=== PATIENT | female | born 1945 | race Caucasian/White ===

== ENCOUNTER → 2017-07-03 | Outpatient (CLI) | payer MEDICARE, OTHER ==
[~2017-07-03] MED LIST: AMLO-104 PO; AMLO-99 PO; ASCO100T12 PO; ASCO100T15 PO; ASPI-1121 PO; ASPI-1471 PO; ASPI81TA94 PO; AZIT-18 PO; BIOT250012 PO; CELE-1 PO; CYAN500T7 PO; DESM0.1T12 PO; DIPH-1 PO; ESTR0.9T14 PO; ESTR1PAT3 TD; FENT1PAT40 TD; FLU20 PO; FLUO-177; FLUO-202 PO; GLUC500C29 PO; HYDR-2946 PO; HYDR12.556 PO; LOSA100T67 PO; MED25 PO; METF-410 PO; MIRA50TA PO; MULT-820 PO; MULT-865 PO; ONDA4TAB97 PO; ONDA8TAB98 PO; OXYC-869 PO; PER PO; POTA99TA10 PO; PREMARIN PO; PROM12.546 PO; SAXA5TAB4; SCOT TD; SITA100T PO; TELM80TA5 PO; VITA-200 PO; VITA100C12 PO
--- NOTE | 2017-07-03 14:25 | RADIOLOGY IMAGING REPORT ---
FACILITY: [facility] PATIENT NAME: THEO YOUNGER : [id number] MR: [id number] V: [id number] EXAM DATE: [id number] ORDERING PHYSICIAN: CHRISTINA COTA TECHNOLOGIST: Yahaira Cox PROCEDURE:BILATERAL DIAGNOSTIC DIGITAL MAMMOGRAM WITH CAD ASSISTED INTERPRETATION & 3D TOMOSYNTHESIS COMPARISON:12/16/2016, 07/03/2016, 06/24/2016, 07/04/2014, 03/01/2014 INDICATIONS:abnormal mammo/6 month follow up of a small ovoid nodule in the left breast at 11 o'clock. VIEWS OBTAINED: Bilateral 2D full field CC & MLO & corresponding 3D tomography TISSUE DENSITY: Scattered fibroglandular densities. FINDINGS: Left breast small focal asymmetry at 9 o'clock is unchanged since 2013. Right breast upper outer quadrant grouped microcalcifications are stable since 2014. There is no mammographic finding suspicious for malignancy in either breast. DIAGNOSTIC CATEGORY 2--BENIGN FINDING. RECOMMENDATIONS: ANNUAL SCREENING BILATERAL MAMMOGRAM AND CLINICAL EVALUATION. IMPRESSION: BIRADS 2: Benign finding. I discussed the results & recommendation with the patient following this study. Dictated by: Camila Inman M.D. on 07/03/2017 at 12:23 Transcribed by: LITO on 07/03/2017 at 13:38 Approved by: Camila Inman M.D. on 07/03/2017 at 14:24 [facility]
--- NOTE | 2017-07-03 14:26 | RADIOLOGY IMAGING REPORT ---
FACILITY: [facility] [place] PATIENT NAME: THEO YOUNGER : [id number] MR: [id number] V: [id number] EXAM DATE: ORDERING PHYSICIAN: CHRISTINA COTA TECHNOLOGIST: Boaz Bustamante PROCEDURE:US LEFT BREAST COMPARISON:Left breast Ultrasound 07/03/2016, 12/16/2016 INDICATIONS:Follow up of a Left breast hypoechoic finding at 11 o'clock FINDINGS: Area scanned: Left breast upper inner quadrant from 10-11 o'clock. The hypoechoic finding seen on the 2 prior breast Ultrasound studies is no longer visualized. There is normal appearing fibroglandular tissue in the 10-11 o'clock area. DIAGNOSTIC CATEGORY 2--BENIGN FINDING. RECOMMENDATIONS: ANNUAL BILATERAL SCREENING MAMMOGRAM. I discussed the results & recommendations with the patient following the study. IMPRESSION: BIRADS 2: Benign finding Dictated by: Camila Inman M.D. on 07/03/2017 at 12:26 Transcribed by: LITO on 07/03/2017 at 13:44 Approved by: Camila Inman M.D. on 07/03/2017 at 14:25 [facility]
== END ==
LOC: MAMO 02:38
PROVIDERS: ATTEND Internal Medicine
DX: R92.8 Other abnormal and inconclusive findings on diagnostic imaging of breast (principal); R92.1 Mammographic calcification found on diagnostic imaging of breast
CPT/HCPCS: 77062; 77066

== ENCOUNTER 2017-09-21 14:42 | Emergency (ER) | payer MEDICARE, OTHER ==
[~2017-09-21 14:42] MED LIST changes: +BENZ200C15 PO; +DOXY-179 PO; -METF-410 PO; +METF-411 PO; +PRED20TA6 PO
[2017-09-21 14:50] VITALS: BP 139/93
--- NOTE | 2017-09-21 14:54 | ER Report ---
History and Physical Time Seen By MD: 14:54 HPI/ROS CHIEF COMPLAINT: Weakness, dizziness HISTORY OF PRESENT ILLNESS: 71-year-old female patient presents to emergency room with complaint of weakness and dizziness. Patient states she's been feeling dizzy for the last 3 days. Patient states she's been sick for approximately 4 weeks now. She states that she did see a physician printing bindery assistant last week who started her on antibiotics and steroids. She states that she has not finished the antibiotics, if she has been steroids and states she is not feeling any better. She states she's had some nausea and vomiting, however so had anything recently. She also states she's not had any fevers, however temperatures higher than it normally is. Patient states that she's been feeling incredibly dizzy whenever she is sitting or standing. She states she has a history of hypokalemia. REVIEW OF SYSTEMS: Respiratory: No cough, no dyspnea. Cardiovascular: No chest pain, no palpitations. Gastrointestinal: No vomiting, no abdominal pain. Musculoskeletal: No back pain. Allergies: Coded Allergies: acetaminophen (Verified Allergy, Unknown, 09/21/17) cephalexin (Verified Allergy, Unknown, 09/21/17) codeine (Verified Allergy, Unknown, 09/21/17) hydrocodone (Verified Allergy, Unknown, 09/21/17) pregabalin (Verified Allergy, Unknown, 09/21/17) propoxyphene (Verified Allergy, Unknown, 09/21/17) Uncoded Allergies: PO NARCOTICS (Allergy, Intermediate, PO NARCOTICS MAKE HER THROW UP, ) Home Meds Active Scripts Potassium Chloride (KLOR-CON M20) 20 Meq Tab.er.prt, 20 MEQ PO QDAY, #30 TAB.SR Prov:POLLO POSADA [facility] 09/21/17 Fluoxetine Hcl (PROZAC) 20 Mg Capsule, 20 MG PO QDAY, #90 CAPSULE 1 Refill Prov:CHRISTINA COTA MD 08/18/17 Losartan Potassium (LOSARTAN POTASSIUM) 100 Mg Tablet, 100 MG PO QDAY, #90 TAB 1 Refill Prov:CHRISTINA COTA MD 08/18/17 Hydrochlorothiazide (HYDROCHLOROTHIAZIDE) 12.5 Mg Capsule, 1 TAB PO QDAY, #90 CAPSULE 1 Refill Prov:CHRISTINA COTA MD 08/18/17 Metformin Hcl (METFORMIN HCL) 500 Mg Tablet, 1 TAB PO BID, #180 TAB 1 Refill Prov:CHRISTINA COTA MD 08/18/17 Scopolamine (TRANSDERM-SCOP) 1.5 Mg Patch, 1.5 MG TD Q3D for 7 Days, #4 PATCH Prov:CHRISTINA COTA MD 02/24/17 Reported Medications Biotin (Biotin) 10,000 Mcg Capsule 09/21/17 Cyanocobalamin (Vitamin B-12) (VITAMIN B-12) 1,000 Mcg Tab.subl, 1000 MCG SL 09/21/17 Vitamin E Acetate (VITAMIN E) 400 Unit Capsule, 400 UNIT PO, CAPSULE 09/21/17 Ascorbic Acid (VITAMIN C) 500 Mg Tablet, 1000 MG PO, TAB 09/21/17 Atorvastatin Calcium (ATORVASTATIN CALCIUM) 10 Mg Tablet, 1 TAB PO QDAY, TAB 09/21/17 Fluoxetine Hcl (FLUOXETINE HCL) 20 Mg Capsule, 20 MG PO QDAY, CAPSULE 09/21/17 Amlodipine Besylate (AMLODIPINE BESYLATE) 10 Mg Tablet, 1 TAB PO QDAY, TAB 09/21/17 Mirabegron (MYRBETRIQ) 50 Mg Tab.er.24h, 50 MG PO for 90 Days, #90 TAB 3 Refills 06/22/17 Multivitamin (DAILY MULTIPLE VITAMIN) 1 Each Tablet, 1 TAB PO DAILY 11/26/16 Aspirin (ASPIRIN) 81 Mg Tab.chew, 81 MG PO QDAY, TAB.CHEW 11/26/16 Estradiol (ESTRADIOL 0.05 MG) 1 Each Patch.tdwk, 1 EACH TD Q7D, PATCH.WK 11/11/16 Discontinued Reported Medications Amlodipine Besylate (NORVASC) 10 Mg Tablet, 1 TAB PO QDAY, TAB 11/26/16 Discontinued Scripts Doxycycline Hyclate (DOXYCYCLINE HYCLATE) 100 Mg Tablet, 1 TAB PO BID for 7 Days , #14 TAB 0 Refills Prov:JU MENA DNP, FNP-BC 09/14/17 Prednisone (PREDNISONE) 20 Mg Tablet, 1 TAB PO BID for 5 Days, #10 TAB 0 Refills Prov:JU MENA DNP, FNP-BC 09/14/17 Benzonatate (BENZONATATE) 200 Mg Capsule, 1 CAP PO TID Y for COUGH, #15 CAP 0 Refills Prov:JU MENA DNP, FNP-BC 09/14/17 Past Medical/Surgical History Patient has a past medical history of hypertension, pneumonia, frequent urination, elbow fracture, back pain, ear infections, prediabetic, depression. Patient has surgical history of tonsillectomy, back surgery, bilateral knee replacement, elbow surgery, hysterectomy, bladder surgery. Patient has a family medical history of diabetes. Reviewed Nurses Notes: Yes Hx Smoking: No Smoking Status: Never Smoker Exposure to Second Hand Smoke?: No Hx Substance Use Disorder: No Hx Alcohol Use: No Constitutional Vital Sign - Last 24 Hours 09/21/17 09/21/17 14:50 15:35 Temp 98.8 Pulse 64 Resp 18 B/P (MAP) 139/93 Pulse Ox 91 O2 Delivery Room Air O2 Flow Rate 1.0 Intake and Output 09/21/17 09/21/17 09/22/17 14:59 22:59 06:59 Intake Total 500 ml Balance 500 ml Physical Exam General Appearance: The patient is alert, has no immediate need for airway protection and no current signs of toxicity. Respiratory: Chest is non tender, lungs are clear to auscultation. Cardiac: regular rate and rhythm Gastrointestinal: Abdomen is soft and slightly tender in the right lower quadrant, no masses, bowel sounds normal. Musculoskeletal: Neck: Neck is supple and non tender. Extremities have full range of motion and are non tender. Skin: No rashes or lesions. DIFFERENTIAL DIAGNOSIS: After history and physical exam differential diagnosis was considered for dizziness including but not limited to peripheral and central causes of vertigo, orthostatic causes including dehydration, and blood loss. Medical Decision Making Data Points Result Diagram: 09/21/17 1529 09/21/17 1529 Laboratory Hematology Test 09/21/17 15:29 09/21/17 16:09 Red Blood Count 5.46 M/uL (4.17-5.56) Mean Corpuscular Volume 85.1 fL (80.0-96.0) Mean Corpuscular Hemoglobin 29.4 pg (26.0-33.0) Mean Corpuscular Hemoglobin Concent 34.6 g/dL (32.0-36.0) Red Cell Distribution Width 14.4 % (11.5-14.5) Mean Platelet Volume 8.3 fL (7.2-11.1) Neutrophils (%) (Auto) 64.2 % (39.4-72.5) Lymphocytes (%) (Auto) 21.2 % (17.6-49.6) Monocytes (%) (Auto) 11.5 % (4.1-12.4) Eosinophils (%) (Auto) 2.9 % (0.4-6.7) Basophils (%) (Auto) 0.2 % (0.3-1.4) Nucleated RBC Relative Count (auto) 0.0 /100WBC Neutrophils # (Auto) 3.1 K/uL (2.0-7.4) Lymphocytes # (Auto) 1.0 K/uL (1.3-3.6) Monocytes # (Auto) 0.6 K/uL (0.3-1.0) Eosinophils # (Auto) 0.1 K/uL (0.0-0.5) Basophils # (Auto) 0.0 K/uL (0.0-0.1) Nucleated RBC Absolute Count (auto) 0.00 K/uL Sodium Level 136 mmol/L (137-145) Potassium Level 2.7 mmol/L (3.5-5.0) Chloride Level 98 mmol/L (98-107) Carbon Dioxide Level 24 mmol/L (22-31) Blood Urea Nitrogen 34 mg/dl (7-18) Creatinine 1.10 mg/dl (0.52-1.04) Glomerular Filtration Rate Calc 49.0 Random Glucose 115 mg/dl (75-110) Calcium Level 9.4 mg/dl (8.4-10.2) Total Bilirubin 0.5 mg/dl (0.2-1.3) Aspartate Amino Transf (AST/SGOT) 27 U/L (0-35) Alanine Aminotransferase (ALT/SGPT) 34 U/L (0-56) Alkaline Phosphatase 88 U/L (0-126) Troponin I < 0.012 ng/ml Total Protein 6.2 gm/dl (6.3-8.2) Albumin 3.5 g/dl (3.5-5.0) Urine Color Straw Urine Clarity Clear Urine pH 6.0 pH (4.8-9.5) Urine Specific [place] 1.010 Urine Protein Negative mg/dL (NEGATIVE) Urine Glucose (UA) Negative mg/dL (NEGATIVE) Urine Ketones Negative mg/dL (NEGATIVE) Urine Blood Negative (NEGATIVE) Urine Nitrite Negative (NEGATIVE) Urine Bilirubin Negative (NEGATIVE) Urine Urobilinogen Negative mg/dL (0.2-1.9) Urine Leukocyte Esterase Negative (NEGATIVE) Urine RBC None /HPF (0-2/HPF) Urine WBC None /HPF (0-5/HPF) Urine Squamous Epithelial Cells Few /LPF (</=FEW) Urine Bacteria Negative /HPF (NONE-FEW) Urine Mucus None /HPF (NONE-FEW) Chemistry Test 09/21/17 15:29 09/21/17 16:09 White Blood Count 4.8 k/uL (4.5-11.0) Red Blood Count 5.46 M/uL (4.17-5.56) Hemoglobin 16.1 g/dL (12.0-16.0) Hematocrit 46.5 % (34.0-47.0) Mean Corpuscular Volume 85.1 fL (80.0-96.0) Mean Corpuscular Hemoglobin 29.4 pg (26.0-33.0) Mean Corpuscular Hemoglobin Concent 34.6 g/dL (32.0-36.0) Red Cell Distribution Width 14.4 % (11.5-14.5) Platelet Count 210 K/uL (150-450) Mean Platelet Volume 8.3 fL (7.2-11.1) Neutrophils (%) (Auto) 64.2 % (39.4-72.5) Lymphocytes (%) (Auto) 21.2 % (17.6-49.6) Monocytes (%) (Auto) 11.5 % (4.1-12.4) Eosinophils (%) (Auto) 2.9 % (0.4-6.7) Basophils (%) (Auto) 0.2 % (0.3-1.4) Nucleated RBC Relative Count (auto) 0.0 /100WBC Neutrophils # (Auto) 3.1 K/uL (2.0-7.4) Lymphocytes # (Auto) 1.0 K/uL (1.3-3.6) Monocytes # (Auto) 0.6 K/uL (0.3-1.0) Eosinophils # (Auto) 0.1 K/uL (0.0-0.5) Basophils # (Auto) 0.0 K/uL (0.0-0.1) Nucleated RBC Absolute Count (auto) 0.00 K/uL Glomerular Filtration Rate Calc 49.0 Calcium Level 9.4 mg/dl (8.4-10.2) Total Bilirubin 0.5 mg/dl (0.2-1.3) Aspartate Amino Transf (AST/SGOT) 27 U/L (0-35) Alanine Aminotransferase (ALT/SGPT) 34 U/L (0-56) Alkaline Phosphatase 88 U/L (0-126) Troponin I < 0.012 ng/ml Total Protein 6.2 gm/dl (6.3-8.2) Albumin 3.5 g/dl (3.5-5.0) Urine Color Straw Urine Clarity Clear Urine pH 6.0 pH (4.8-9.5) Urine Specific [place] 1.010 Urine Protein Negative mg/dL (NEGATIVE) Urine Glucose (UA) Negative mg/dL (NEGATIVE) Urine Ketones Negative mg/dL (NEGATIVE) Urine Blood Negative (NEGATIVE) Urine Nitrite Negative (NEGATIVE) Urine Bilirubin Negative (NEGATIVE) Urine Urobilinogen Negative mg/dL (0.2-1.9) Urine Leukocyte Esterase Negative (NEGATIVE) Urine RBC None /HPF (0-2/HPF) Urine WBC None /HPF (0-5/HPF) Urine Squamous Epithelial Cells Few /LPF (</=FEW) Urine Bacteria Negative /HPF (NONE-FEW) Urine Mucus None /HPF (NONE-FEW) Urinalysis Test 09/21/17 16:09 Urine Color Straw Urine Clarity Clear Urine pH 6.0 pH (4.8-9.5) Urine Specific [place] 1.010 Urine Protein Negative mg/dL (NEGATIVE) Urine Glucose (UA) Negative mg/dL (NEGATIVE) Urine Ketones Negative mg/dL (NEGATIVE) Urine Blood Negative (NEGATIVE) Urine Nitrite Negative (NEGATIVE) Urine Bilirubin Negative (NEGATIVE) Urine Urobilinogen Negative mg/dL (0.2-1.9) Urine Leukocyte Esterase Negative (NEGATIVE) Urine RBC None /HPF (0-2/HPF) Urine WBC None /HPF (0-5/HPF) Urine Squamous Epithelial Cells Few /LPF (</=FEW) Urine Bacteria Negative /HPF (NONE-FEW) Urine Mucus None /HPF (NONE-FEW) EKG/Imaging EKG Interpretation 12 lead EKG: Rhythm: normal sinus rhythm with a ventricular rate of 61 bpm [place]: normal QRS: Left anterior fascicular block ST segments: normal Imaging Exam type: CHEST PA AND LAT History: Dizziness and cough Comparison: November 11, 2016. And August 17, 2014 Findings: The lungs are free of acute effusions, infiltrates or edema. This mild chronic peribronchial thickening bilaterally. The cardiac swelling is normal in size. Is moderate ectasia thoracic aorta. IMPRESSION: 1. No acute cardiac pulmonary process is seen Mild chronic peribronchial thickening bilaterally Report Dictated By: Stacey Delacruz MD at 09/21/2017 4:11 PM Report E-Signed By: Stacey Delacruz MD at 09/21/2017 4:14 PM EXAMINATION: CT head without IV contrast HISTORY: Dizziness. TECHNIQUE: Axial CT images of the head were obtained from the vertex to the skull base without IV contrast, with coronal and sagittal 2D reconstructed images. One of the following dose optimization techniques was utilized in the performance of this exam: Automated exposure control; adjustment of the mA and/ or kV according to the patient's size; or use of an iterative reconstruction technique. Specific details can be referenced in the facility's radiology CT exam operational policy. COMPARISON: 03/03/2013. FINDINGS: Intracranial contents are unremarkable. No CT evidence of intracranial hemorrhage, mass lesion, or acute infarct. No midline shift or extra-axial fluid collections. Abbott-white differentiation is maintained. The calvarium is intact. The partially visualized paranasal sinuses and mastoid air cells are unopacified. IMPRESSION: Unremarkable noncontrast head CT. Report Dictated By: Henrique Tabor MD at 09/21/2017 4:09 PM Report E-Signed By: Henrique Tabor MD at 09/21/2017 4:14 PM ED Course/Re-evaluation ED Course Patient was admitted to exam room, history and physical were obtained. Differential diagnoses were considered. On examination patient was alert and oriented 4, lungs are clear, heart was regular, patient had no abdominal tenderness. An IV started, a CBC, CMP, EKG, chest x-ray, CT scan of the head, troponin were done. Patient did have an elevated BUN of 34, a creatinine of 1.1 , a potassium of 2.7. I believe the patient is feeling dizzy and off because of her low potassium and her dehydration. Patient was given a half liter of normal saline prior to getting her head CT, which was negative, and then after that received a 20 mEq K rider and a liter of normal saline with that. On reevaluation patient states she's feeling significantly better. Patient's EKG showed a normal sinus rhythm with a left anterior fascicular block, her troponin was negative, chest x-ray showed no acute cardiopulmonary processes. Patient states she feels ready to go home. I discussed follow-up with her primary care provider. She does have an appointment with Dr. Cota tomorrow. Patient was given a prescription for potassium 20 mEq she is to take daily. She is to follow-up with Jassi Agustin and order repeat labs for later this week. Patient verbalized understanding and agreement with plan. Decision to Disposition Date: September 21, 2017 Decision to Disposition Time: 18:30 Depart Departure Latest Vital Signs Vital Signs Date Time Temp Pulse Resp B/P (MAP) Pulse Ox O2 Delivery O2 Flow Rate FiO2 09/21/17 15:35 1.0 09/21/17 14:50 98.8 64 18 139/93 91 Room Air Impression: Primary Impression: Hypokalemia Additional Impression: Dehydration Condition: Improved Disposition: HOME OR SELF-CARE Referrals: CHRISTINA COTA MD (PCP) New Scripts Potassium Chloride (KLOR-CON M20) 20 Meq Tab.er.prt 20 MEQ PO QDAY, #30 TAB.SR Prov: POLLO POSADA 09/21/17 Patient Instructions: Hypokalemia (ED) Additional Instructions: Increase fluid intake. Get plenty of rest. Follow up with Dr. Cota tomorrow as directed. Take your medication as prescribed. Return to the ER if condition worsens. Discuss getting repeat labs done with Dr. Cota tomorrow. Problem Qualifiers POLLO POSADA September 21, 2017 14:54
[2017-09-21] MEDS ORDERED: NS(*) 0.9% 500 ML BAG 500 ML IV ONE (15:03)
[2017-09-21] MEDS ORDERED: ONDANSETRON 4 MG/2 ML VIAL IVP ONE (15:05)
[2017-09-21] MEDS ORDERED: AMLO-99 PO (15:46)
[2017-09-21] MEDS ORDERED: FLUO-177 PO (15:46)
[2017-09-21] MEDS ORDERED: ASCO-182 PO (15:46)
[2017-09-21] MEDS ORDERED: VITA-200 PO (15:46)
[2017-09-21] MEDS ORDERED: BIOT10005 (15:46)
[2017-09-21] MEDS ORDERED: CYAN100071 SL (15:46)
[2017-09-21] MEDS ORDERED: ATOR10TA65 PO (15:46)
[2017-09-21] MEDS ORDERED: KCL (*) 20 MEQ/100 ML PREMIX 100 ML IV ONE (16:00)
[2017-09-21 16:01] LABS: PLATELET COUNT, AUTOMATED 210 K/uL (150-450)
--- NOTE | 2017-09-21 16:18 | RADIOLOGY IMAGING REPORT ---
FACILITY: [facility] - [place] PATIENT NAME: Henna Garcia : 1945 MR: [id number] V: [id number] EXAM DATE: ORDERING PHYSICIAN: POLLO POSADA TECHNOLOGIST: Location: [facility] Patient: Henna Garcia : 1945 Visit/Account:[id number] Date of Sevice: 09/21/2017 EXAMINATION: CT head without IV contrast HISTORY: Dizziness. TECHNIQUE: Axial CT images of the head were obtained from the vertex to the skull base without IV c ontrast, with coronal and sagittal 2D reconstructed images. One of the following dose optimization techniques was utilized in the performance of this exam: Autom ated exposure control; adjustment of the mA and/or kV according to the patient's size; or use of an i terative reconstruction technique. Specific details can be referenced in the facility's radiology C T exam operational policy. COMPARISON: 03/03/2013. FINDINGS: Intracranial contents are unremarkable. No CT evidence of intracranial hemorrhage, mass lesion, or ac irais infarct. No midline shift or extra-axial fluid collections. Abbott-white differentiation is maintai valdemar. The calvarium is intact. The partially visualized paranasal sinuses and mastoid air cells are unopaci fied. IMPRESSION: Unremarkable noncontrast head CT. Report Dictated By: Henrique Tabor MD at 09/21/2017 4:09 PM Report E-Signed By: Henrique Tabor MD at 09/21/2017 4:14 PM WSN:[id number]
--- NOTE | 2017-09-21 16:18 | RADIOLOGY IMAGING REPORT ---
FACILITY: [facility] PATIENT NAME: Henna Garcia : 1945 MR: [id number] V: [id number] EXAM DATE: ORDERING PHYSICIAN: POLLO POSADA TECHNOLOGIST: Location: [facility] [place] Patient: Henna Garcia : 1945 Visit/Account:[id number] Date of Sevice: 09/21/2017 Exam type: CHEST PA AND LAT History: Dizziness and cough Comparison: November 11, 2016. And August 17, 2014 Findings: The lungs are free of acute effusions, infiltrates or edema. This mild chronic peribronchial thicken ing bilaterally. The cardiac swelling is normal in size. Is moderate ectasia thoracic aorta. IMPRESSION: 1. No acute cardiac pulmonary process is seen Mild chronic peribronchial thickening bilaterally Report Dictated By: Stacey Delacruz MD at 09/21/2017 4:11 PM Report E-Signed By: Stacey Delacruz MD at 09/21/2017 4:14 PM WSN:[id number]
[2017-09-21] MEDS ORDERED: NS(*) 0.9% 1000 ML BAG 1,000 ML IV ONE (16:20)
--- NOTE | 2017-09-21 16:21 | EKG ---
FACILITY: [facility] - [place] PATIENT NAME: THEO YOUNGER : [id number] MR: [id number] V: [id number] EXAM DATE: ORDERING PHYSICIAN: POLLO POSADA TECHNOLOGIST: Philipp Harrington Reason : Blood Pressure : / mmHG Vent. Rate : 061 BPM Atrial Rate : 061 BPM P-R Int : 160 ms QRS Dur : 094 ms QT Int : 426 ms P-R-T Axes : 050 -45 021 degrees QTc Int : 428 ms Sinus rhythm Probable left atrial enlargement Left axis Nonspecific interventricular conduction delay Nonspecific ST findings Abnormal ECG Confirmed by MAIKEL SEVILLA ([id number]) on 09/22/2017 5:49:06 AM Referred By: Confirmed By:MAIKEL SEVILLA
[2017-09-21] MEDS ORDERED: POTA20TA85 PO (18:28)
[2017-09-21] MEDS ORDERED: POTASSIUM CHL 20 MEQ TABCR PO ONE (18:30)
== END 2017-09-21 18:42 | disposition home or self-care (01) ==
LOC: ER 14:51
DX: E87.6 Hypokalemia (principal); E86.0 Dehydration
CPT/HCPCS: 70450; 71046; 81001; 84484; 85025; 93005; 96361; 96365; 96366; 96375; 99284; A9270; J2405; J3480; J7030; J7040; 82040; 82247; 82310; 82374; 82435; 82565; 82947; 84075; 84132; 84155; 84295; 84450; 84460; 84520

== ENCOUNTER → 2017-09-25 | Outpatient (CLI) | payer MEDICARE, OTHER ==
[~2017-09-25] MED LIST changes: +ASCO-182 PO; +ATOR10TA65 PO; +BIOT10005; +CYAN100071 SL; +FLUO-177 PO; +POTA20TA85 PO
== END ==
LOC: LAB 10:13
PROVIDERS: ATTEND Nurse Practitioner Primary Care
DX: E87.6 Hypokalemia (principal)
CPT/HCPCS: 36415; 82040; 82247; 82310; 82374; 82435; 82565; 82947; 84075; 84132; 84155; 84295; 84450; 84460; 84520

== ENCOUNTER → 2017-10-08 | Outpatient (CLI) | payer MEDICARE, OTHER ==
[~2017-10-08] MED LIST changes: +CHOL200074 PO; +ESTR0.5T16 PO
== END ==
LOC: LAB 11:50
PROVIDERS: ATTEND Emergency Medicine
DX: E87.6 Hypokalemia (principal); E11.9 Type 2 diabetes mellitus without complications
CPT/HCPCS: 36415; 82310; 82374; 82435; 82565; 82947; 83036; 83735; 84132; 84295; 84520

== ENCOUNTER → 2017-10-19 | Outpatient (CLI) | payer MEDICARE, OTHER ==
--- NOTE | 2017-10-19 09:49 | RADIOLOGY IMAGING REPORT ---
FACILITY: [facility] PATIENT NAME: Henna Garcia : 1945 MR: [id number] V: [id number] EXAM DATE: ORDERING PHYSICIAN: JUAN DRISCOLL TECHNOLOGIST: Location: [facility] [place] Patient: Henna Garcia : 1945 Visit/Account:[id number] Date of Sevice: 10/19/2017 DEXA Scan Clinical history: Postmenopausal estrogen deficiency. Comparison: 06/11/2004. HIP: Bone mineral density (BMD) measured in the Left total hip region correlates with a Z-score 1.5 and a T-score of 0.1 which is Normal as defined by the World Health Organization. The corresponding risk of fracture in the hip is Not increased compared with a young adult reference population. Bone mineral density (BMD) measured in the Femoral Neck region measures 0.903 g/cm2. FOREARM: The bone mineral density (BMD) measured in the ULTRADISTAL Left forearm, where trabecular bone predom inates, correlates with a Z-score 2.4 and a T-score of 0.4 which is normal as defined by the World He alth Organization. The corresponding risk of fracture in the distal forearm is not increased compare d with a young adult reference population. The bone mineral density (BMD) in the MIDSHAFT of the forearm, where cortical bone predominates, kirit elates with a Z-score 1.7 and a T-score of -0.3 which is normal as defined by the World Health Organi zation. The corresponding risk of fracture in the midshaft of the forearm is not increased compared w ith a young adult reference population. IMPRESSION: 1. Left Hip: Normal. 2. Femoral Neck: Bone Mineral Density is 0.903 g/cm2 3. Left Forearm: Normal. The next DEXA scan of this patient should include the following sites: Left hip and the left forearm. FRAX? WHO Fracture Risk Assessment Tool link: <http://www.shef.ac.uk/FRAX/tool.jsp?locationValue=9> PLEASE NOTE: 1) The World Health Organization defines low BMD as follows: T-score Normal > -1 Osteopenia < -1 and > -2.5 Osteoporosis < -2.5 without fractures Established osteoporosis < -2.5 with fractures 2) In general, you may wish to consider: Diagnosis Treatment Follow-up DEXA Normal BMD Prevention 2-3 years Osteopenia Prevention/therapy 1-2 years Osteoporosis Therapy Yearly 3) Fracture risk estimated from the T-score is more accurate for vertebral fractures (often spontane ous) than for hip fractures. Report Dictated By: Stacey Delacruz MD at 10/19/2017 9:28 AM Report E-Signed By: Stacey Delacruz MD at 10/19/2017 9:45 AM LORAINEN:[email or web address]
== END ==
LOC: RAD 02:28
PROVIDERS: ATTEND Emergency Medicine
DX: Z13.820 Encounter for screening for osteoporosis (principal); Z78.0 Asymptomatic menopausal state
CPT/HCPCS: 77080

== ENCOUNTER → 2017-11-02 | Outpatient (CLI) | payer MEDICARE, OTHER | LOC: LAB 08:19 | PROVIDERS: ATTEND Emergency Medicine | DX: I10 Essential (primary) hypertension (principal) | CPT/HCPCS: 36415; 82465; 83718; 84478 ==

== ENCOUNTER → 2018-04-29 | Outpatient (CLI) | payer MEDICARE, OTHER ==
[~2018-04-29] MED LIST changes: +AMLO-113 PO; -AMLO-99 PO; +ATOR20TA65 PO; -LOSA100T67 PO; +LOSA100T75 PO; -METF-411 PO; +METF-450 PO
== END ==
LOC: LAB 09:49
PROVIDERS: ATTEND Emergency Medicine
DX: R20.8 Other disturbances of skin sensation (principal); R73.03 Prediabetes
CPT/HCPCS: 36415; 82607; 83036

== ENCOUNTER → 2018-05-19 | Outpatient (CLI) | payer MEDICARE, OTHER ==
--- NOTE | 2018-05-20 17:09 | EKG ---
FACILITY: [facility] - [place] PATIENT NAME: THEO YOUNGER : [id number] MR: [id number] V: [id number] EXAM DATE: ORDERING PHYSICIAN: ANNIE LARA TECHNOLOGIST: LV Test Reason : SCOPE CONSULT Blood Pressure : / mmHG Vent. Rate : 055 BPM Atrial Rate : 055 BPM P-R Int : 172 ms QRS Dur : 090 ms QT Int : 480 ms P-R-T Axes : 003 -24 -03 degrees QTc Int : 459 ms Sinus bradycardia Otherwise normal ECG When compared with ECG of 19-MAY-2018 09:12, No significant change was found Referred By: MD LARA Confirmed By:
== END ==
LOC: RESP 08:58
PROVIDERS: ATTEND Surgery
DX: Z02.9 Encounter for administrative examinations, unspecified (principal)

== ENCOUNTER 2018-06-29 00:20 | Day surgery (SDC) | payer MEDICARE, OTHER ==
[~2018-06-29] VITALS: Ht 170.2 cm; Wt 68.5 kg
[~2018-06-29 00:20] MED LIST changes: -AMLO-113 PO; +AMLO-127 PO; -DESM0.1T12 PO; +LIDOCAINE/SOD BICARB 8.4% SYR ID ONE; +NORMOSOL R SOLN(*) 1000 ML BAG 1,000 ML IV PRN; +[UNRECOGNIZED DRUG - CODE] PO
[2018-06-29] MEDS ORDERED: LIDOCAINE MPF 1% 5 ML VIAL ONE (07:33)
[2018-06-29] MEDS ORDERED: PROPOFOL EMUL(*) 10MG/ML 20 ML 40 ML ONE (07:33)
[2018-06-29 08:17] VITALS: BP 133/81
[2018-06-29 09:43] VITALS: BP 91/61
[2018-06-29] MEDS ORDERED: LIDOCAINE/SOD BICARB 8.4% SYR ID ONE (09:45)
[2018-06-29] MEDS ORDERED: NORMOSOL R SOLN(*) 1000 ML BAG 1,000 ML IV PRN (09:45)
[2018-06-29 09:52] VITALS: BP 104/64
--- NOTE | 2018-06-29 09:54 | Short(Outpt) Discharge Summary ---
Discharge Summary Reason for Hosp/Final Diag: (1) Encounter for screening colonoscopy Hospital Course & Plan: pt presented for screening colonoscopy. she tolerated the procedure well and there were no complications. she will be discharged home when criteria met. Departure Discharge to: Home Discharge Instructions Home Meds Active Scripts Hydrochlorothiazide (HYDROCHLOROTHIAZIDE) 12.5 Mg Capsule, 1 TAB PO QDAY, #90 CAPSULE 3 Refills Prov:JUAN DRISCOLL MD 03/02/18 Amlodipine Besylate (AMLODIPINE BESYLATE) 10 Mg Tablet, 1 TAB PO QDAY, #90 TAB 3 Refills Prov:JUAN DRISCOLL MD 02/12/18 Potassium Chloride (KLOR-CON M20) 20 Meq Tab.er.prt, 20 MEQ PO QDAY, #90 TAB.SR 3 Refills Prov:JUAN DRISCOLL MD 02/12/18 Metformin Hcl (METFORMIN HCL) 500 Mg Tablet, 1 TAB PO BID, #180 TAB 3 Refills Prov:JUAN DRISCOLL MD 02/12/18 Fluoxetine Hcl (PROZAC) 20 Mg Capsule, 20 MG PO QDAY, #90 CAPSULE 3 Refills Prov:JUAN DRISCOLL MD 02/12/18 Losartan Potassium (LOSARTAN POTASSIUM) 100 Mg Tablet, 100 MG PO QDAY, #90 TAB 3 Refills Prov:JUAN DRISCOLL MD 02/12/18 Atorvastatin Calcium (ATORVASTATIN CALCIUM) 20 Mg Tablet, 1 TAB PO QDAY, #90 TAB 3 Refills Prov:JUAN DRISCOLL MD 01/27/18 Reported Medications Cholecalciferol (Vitamin D3) (VITAMIN D-3) Unknown Strength Capsule, PO, CAPSULE 10/08/17 Estradiol (ESTRADIOL) 0.5 Mg Tablet, 0.5 MG PO DAILY 10/08/17 Mirabegron (MYRBETRIQ) 50 Mg Tab.er.24h, 50 MG PO for 90 Days, #90 TAB 3 Refills 06/22/17 Aspirin (ASPIRIN) 81 Mg Tab.chew, 81 MG PO QDAY, TAB.CHEW 11/26/16 Diet: Regular Activity: As Tolerated Special Instructions: repeat colonoscopy 10 yrs ANNIE LARA Jun 29, 2018 09:54
--- NOTE | 2018-06-29 09:54 | NUR ---
ABLE TO AROUSE PT. WITH STIMULI. NO CONCERNS. REORIENTED WITH EASE.
[2018-06-29 10:13] VITALS: BP 116/68
[2018-06-29 10:28] VITALS: BP 130/73
[2018-06-29 10:31] VITALS: BP 123/72
== END 2018-06-29 10:49 | disposition home or self-care (01) ==
LOC: OR 00:20
PROVIDERS: ATTEND Surgery
DX: Z12.11 Encounter for screening for malignant neoplasm of colon (principal); K57.30 Diverticulosis of large intestine without perforation or abscess without bleeding; E11.9 Type 2 diabetes mellitus without complications
CPT/HCPCS: 00812; 36416; 82948; G0121; J2001; J2704

== ENCOUNTER → 2018-07-16 | Outpatient (CLI) | payer MEDICARE, OTHER ==
[~2018-07-16] MED LIST changes: -LIDOCAINE/SOD BICARB 8.4% SYR ID ONE; -NORMOSOL R SOLN(*) 1000 ML BAG 1,000 ML IV PRN
--- NOTE | 2018-07-16 14:16 | RADIOLOGY IMAGING REPORT ---
FACILITY: [facility] PATIENT NAME: THEO YOUNGER : [id number] MR: [id number] V: [id number] EXAM DATE: [id number] ORDERING PHYSICIAN: JUAN DRISCOLL TECHNOLOGIST: Yahaira Cox PROCEDURE:BILATERAL DIGITAL SCREENING MAMMOGRAM WITH CAD ASSISTED INTERPRETATION & 3D TOMOSYNTHESIS COMPARISON:Prior mammograms 07/03/17, 12/16/16, 07/03/16, 06/24/16, 05/03/15, 03/01/14. INDICATIONS:SCREENING FINDINGS: The breasts are heterogeneously dense which can obscure small masses. The parenchymal pattern has remained stable allowing for difference in mammographic technique & patient positioning. DIAGNOSTIC CATEGORY 1--NEGATIVE. RECOMMENDATIONS: ROUTINE MAMMOGRAM AND CLINICAL EVALUATION. IMPRESSION: BIRADS 1: Negative. No significant abnormality is seen. Dictated by: Stacey Delacruz M.D. on 07/16/2018 at 10:47 Transcribed by: MARGARET on 07/16/2018 at 14:13 Approved by: Stacey Delacruz M.D. on 07/16/2018 at 14:15 [facility]
== END ==
LOC: MAMO 04:14
PROVIDERS: ATTEND Emergency Medicine
DX: Z12.31 Encounter for screening mammogram for malignant neoplasm of breast (principal)
CPT/HCPCS: 77063; 77067

== ENCOUNTER → 2018-10-28 | Outpatient (CLI) | payer MEDICARE, OTHER ==
[~2018-10-28] MED LIST changes: +LOSA25TA57 PO; +LOSA50TA80 PO
== END ==
LOC: LAB 08:25
PROVIDERS: ATTEND Emergency Medicine
DX: R73.03 Prediabetes (principal); I10 Essential (primary) hypertension
CPT/HCPCS: 36415; 82310; 82374; 82435; 82565; 82947; 83036; 84132; 84295; 84520